=== PATIENT | male | born 1980 | race Caucasian/White ===

== ENCOUNTER 2017-03-19 21:24 | Emergency (ER) | payer SELFPAY ==
[~2017-03-19] VITALS: Ht 182.9 cm; Wt 73.1 kg
[~2017-03-19 21:24] MED LIST: BACTRIM,SEPT1 TABLET PO; KEFLEX500 MG PO; NAPROSYN500 MG PO; NORCO 5/3251 TABLET PO; PERCOCET 5/31 TABLET PO
[2017-03-20] MEDS ORDERED: PERCOCET 5/31 TABLET PO (00:16)
[2017-03-20] MEDS ORDERED: MEDROL DOSEPAK4 MG PO (00:16)
[2017-03-20 00:40] VITALS: BP 132/68
== END 2017-03-20 00:41 | disposition home or self-care (01) ==
LOC: EME 21:24
DX: M65.831 Other synovitis and tenosynovitis, right forearm (principal)
CPT/HCPCS: 73110; 99281; 99284; J1885

== ENCOUNTER 2017-11-12 11:15 | Emergency (ER) | payer OTHER ==
[~2017-11-12] VITALS: Ht 182.9 cm; Wt 81.2 kg
[~2017-11-12 11:15] MED LIST changes: +MEDROL DOSEPAK4 MG PO
[2017-11-12 11:22] VITALS: BP 136/75
[2017-11-12] MEDS ORDERED: PERCOCET 5/31 TABLET PO (12:23)
== END 2017-11-12 12:48 | disposition home or self-care (01) ==
LOC: EME 11:15
DX: S30.810A Abrasion of lower back and pelvis, initial encounter (principal); S63.602A Unspecified sprain of left thumb, initial encounter; W22.8XXA Striking against or struck by other objects, initial encounter; W18.30XA Fall on same level, unspecified, initial encounter; Y99.0 Civilian activity done for income or pay
CPT/HCPCS: 99281; 99283

== ENCOUNTER 2017-11-28 17:28 | Emergency (ER) | payer OTHER ==
[~2017-11-28] VITALS: Ht 182.9 cm; Wt 84.1 kg
[2017-11-28] MEDS ORDERED: FLEXERIL10 MG PO (20:41)
[2017-11-28 20:52] VITALS: BP 153/95
== END 2017-11-28 20:53 | disposition home or self-care (01) ==
LOC: EME 17:28
DX: S20.229A Contusion of unspecified back wall of thorax, initial encounter (principal); M54.2 Cervicalgia; W20.8XXA Other cause of strike by thrown, projected or falling object, initial encounter; Y99.0 Civilian activity done for income or pay
CPT/HCPCS: 72040; 72100; 99281; 99283